=== PATIENT | female | born 1965 | race Caucasian/White ===

== ENCOUNTER 2021-11-11 11:10 | Day surgery (SDC) | payer BC ==
[~2021-11-11] VITALS: Ht 172.7 cm; Wt 66.8 kg
[2021-11-11] MEDS ORDERED: HYDHCL25 PO (11:54)
[2021-11-11] MEDS ORDERED: ACET325 PO (11:55)
[2021-11-11] MEDS ORDERED: Norco 5-325 Ta1 EACH PO (11:55)
--- NOTE | 2021-11-11 18:26 | NUR ---
Patient up to Ambulate independently. Gait steady. Discharge instructions reviewed with patient. Patient verbalizes understanding. Copy given to patient to take home. Patient States Post-Procedure ride home has been arranged. Dressing to procedure site clean, dry, intact Discharged via wheelchair to private car for ride home.
--- NOTE | 2021-11-12 07:50 | NUR ---
11/12/21 0750 Joann Daniel VERIFICATIONS: EDIT CHART.
== END 2021-11-11 23:25 | disposition home or self-care (01) ==
LOC: ORSCMMR 11:10 → ORD 14:00 → ORSCMMR 23:25
PROVIDERS: Orthopaedic Surgery
PROC: 0PSD04Z Reposition Left Humeral Head with Internal Fixation Device, Open Approach (ICD-10-PCS; principal; 2021-11-11 14:00)
PROC: 0LQ20ZZ Repair Left Shoulder Tendon, Open Approach (ICD-10-PCS; principal; 2021-11-11 14:00)
DX: S42.252A Displaced fracture of greater tuberosity of left humerus, initial encounter for closed fracture (principal); M75.112 Incomplete rotator cuff tear or rupture of left shoulder, not specified as traumatic; F17.210 Nicotine dependence, cigarettes, uncomplicated; Z79.899 Other long term (current) drug therapy
CPT/HCPCS: A9270; C1713; C1769; J0171; J0696; J0735; J1100; J1885; J2250; J2370; J2405; J2704; J2795; J3010; J7120

== ENCOUNTER 2022-07-10 18:44 | Emergency (ER) | payer BC ==
[~2022-07-10] VITALS: Ht 172.7 cm; Wt 72.6 kg
[~2022-07-10 18:44] MED LIST: ACET325 PO; HYDHCL25 PO; Norco 5-325 Ta1 EACH PO
[2022-07-10 19:44] LABS: BASOPHILS ABSOLUTE AUTO 0.02 K/mm3 (0.00-0.23); BASOPHILS PERCENT AUTO 0 % (0-2); EOSINOPHILS ABSOLUTE AUTO 0.02 K/mm3 (0.00-0.68); EOSINOPHILS PERCENT AUTO 0 % (0-6); Hematocrit 37.2 % (33.0-51.0); Hemoglobin 13.3 g/dL (11.5-16.0); IMMATURE GRAN ABSOLUTE AUTO 0.02 K/mm3 (0.00-0.10); IMMATURE GRAN PERCENT AUTO 0 % (0-1); LYMPHOCYTES ABSOLUTE AUTO 1.26 K/mm3 (0.84-5.20); LYMPHOCYTES PERCENT AUTO 16 % (21-46); MONOCYTES ABSOLUTE AUTO 0.31 K/mm3 (0.16-1.47); MONOCYTES PERCENT AUTO 4 % (4-13); Mean Corpuscular HGB 34.9 pg (26.0-34.0); Mean Corpuscular HGB Conc 35.8 g/dL (31.5-36.5); Mean Corpuscular Volume 98 fL (80-100); Mean Platelet Volume 9.5 fL (9.1-12.4); NEUTROPHILS ABSOLUTE AUTO 6.43 K/mm3 (1.96-9.15); NEUTROPHILS PERCENT AUTO 80 % (41-73); Platelet Count 256 K/mm3 (150-400); RDW Coefficient Variation 12.5 % (11.7-14.2); RDW Standard Deviation 45.2 fL (35.1-46.3); Red Blood Cell Count 3.81 M/mm3 (3.80-5.20); White Blood Cell Count 8.06 K/mm3 (4.00-11.30)
[2022-07-10 20:01] LABS: Albumin, Blood 4.3 g/dL (3.4-5.0); Albumin/Globulin Ratio 1.2 (0.8-1.8); Bilirubin, Total 0.3 mg/dL (0.1-1.0); Bun/Creatinine Ratio 11.1 (12.0-20.0); Calcium, Blood 8.7 mg/dL (8.5-10.1); Creatinine, Blood 0.81 mg/dL (0.40-1.00); Globulin, Blood 3.6 g/dL (2.2-4.0); Potassium, Blood 3.5 mmol/L (3.5-5.5); Total Protein, Blood 7.9 g/dL (6.4-8.2)
== END 2022-07-10 21:30 | disposition home or self-care (01) ==
LOC: ER 18:44
PROVIDERS: Emergency Medicine
DX: R55 Syncope and collapse (principal); S82.431A Displaced oblique fracture of shaft of right fibula, initial encounter for closed fracture; W19.XXXA Unspecified fall, initial encounter
CPT/HCPCS: 29515; 36415; 73610; 80053; 83880; 84484; 85025; 93005; 93010; 99284-25; A9270

== ENCOUNTER 2024-04-15 10:02 | Emergency (ER) | payer OTHER, BC ==
[~2024-04-15] VITALS: Ht 172.7 cm; Wt 74.4 kg
[2024-04-15] MEDS ORDERED: HYDHCL25 PO (10:34)
[2024-04-15] MEDS ORDERED: FLUO10 PO (10:34)
[2024-04-15] MEDS ORDERED: NS 1,000 ML IV SCH (12:05)
[2024-04-15] MEDS ORDERED: Propofol 10mg/ml 20 ml Vial (Procedural) IV SCH ×3 (12:05→13:35)
[2024-04-15 14:00] VITALS: BP 162/90
[2024-04-15] MEDS ORDERED: Percocet 5-3251 EACH PO (14:38)
== END 2024-04-15 15:20 | disposition home or self-care (01) ==
LOC: ER 10:02
DX: S42.201A Unspecified fracture of upper end of right humerus, initial encounter for closed fracture (principal); R91.1 Solitary pulmonary nodule; F17.210 Nicotine dependence, cigarettes, uncomplicated; W01.0XXA Fall on same level from slipping, tripping and stumbling without subsequent striking against object, initial encounter; Z79.899 Other long term (current) drug therapy
CPT/HCPCS: 23650; 71250; 73030; 99152; 99156; 99157; 99284-25; J2704; J7030